=== PATIENT | female | born 1940 ===

== ENCOUNTER 2016-12-31 13:20 | Observation (INO) | payer MEDICARE, MEDICAID ==
[2016-12-31] MEDS ORDERED: Sodium Chloride 0.9% 1,000 ML IV STA (14:05)
[2016-12-31] MEDS ORDERED: Albuterol-Ipratrop 3 mg / 0.5 (3 ml) UD INH STA (14:05)
[2016-12-31] MEDS ORDERED: Albuterol-Ipratrop 3 mg / 0.5 (3 ml) UD ONE (14:11)
--- NOTE | 2016-12-31 14:15 | ED PDOC ---
HPI: SOB/CHF/COPD Time Seen by Provider: 12/31/16 13:57 Chief Complaint (Nursing): Shortness Of Breath Chief Complaint (Provider): Shortness of Breath History Per: Patient, Family History/Exam Limitations: no limitations Onset/Duration Of Symptoms: Days (2x weeks) Current Symptoms Are (Timing): Still Present Severity: Moderate Additional Complaint(s): 76 year old female with a pertinent medical history of PE (diagnosed 1x month ago at [facility], currently taking Xarelto), HTN, and hypercholesterolemia presents to the ED with complaints of difficulty breathing accompanied by a mild headache (not the worst of her life), congestion, cough ( no phlegm), rhinorrhea, chest pain, back pain, body aches, and joint pain. She reports taking Tylenol with no relief and denies having numbness, tingling, weakness, fevers, nausea, and vomiting. MD: Adithya Haile Jr., MD - Risk Factors PE Risk Factors: Pos: Previous PE Past Medical History Reviewed: Historical Data, Nursing Documentation, Vital Signs Vital Signs: Last Vital Signs Temp 97.1 F L 12/31/16 13:28 Pulse 66 12/31/16 13:28 Resp 18 12/31/16 13:28 BP 117/71 12/31/16 13:28 Pulse Ox 99 12/31/16 16:58 - Medical History PMH: HTN, Hypercholesterolemia, Pulmonary Embolism Denies: Asthma - Family History Family History: States: Unknown Family Hx - Social History Alcohol: None Drugs: Denies - Home Medications Home Medications: Ambulatory Orders Medication Instructions Recorded Acetaminophen [Tylenol 325mg tab] 650 mg PO Q6H PRN 01/19/15 Acetaminophen [Tylenol] 650 mg PO Q4H PRN 01/19/15 Atorvastatin Calcium [Lipitor] 20 mg PO HS 01/19/15 Bisacodyl [Ducolax] 10 mg DE DAILY PRN 01/19/15 Celecoxib [celeBREX] 200 mg PO DAILY 01/19/15 Enoxaparin [Lovenox] 40 mg SC DAILY 01/19/15 Famotidine 20 mg PO Q12H 01/19/15 Ferrous Sulfate 324 mg PO TID 01/19/15 Folic Acid 1 mg PO DAILY 01/19/15 Mag Hydrox/Aluminum Hyd/Simeth 30 ml PO Q4H PRN 01/19/15 [Mag-Al Plus Xs 30 ml] Magnesium Hydroxide [Milk Of 30 ml PO HS PRN 01/19/15 Magnesia] Metoclopramide Hydrochloride 2 ml IV Q6H PRN 01/19/15 [Reglan] Metoprolol Succinate [Toprol XL] 25 mg PO DAILY 01/19/15 Multivitamin [Daily Vitamin] 1 tab PO DAILY 01/19/15 Ondansetron HCl [Zofran] 4 mg IVP Q6H PRN 01/19/15 Sennosides/Docusate Sodium 2 tab PO Q12H 01/19/15 [Senna-Plus 50 mg-8.6 mg] Zolpidem Tartrate [Zolpidem] 5 mg PO HS PRN 01/19/15 oxyCODONE/Acetaminophen [Percocet 1 tab PO Q4H PRN 01/19/15 5/325 mg Tab] oxyCODONE/Acetaminophen [Percocet 2 tab PO Q4H PRN 01/19/15 5/325 mg Tab] - Allergies Allergies/Adverse Reactions: Allergies Allergy/AdvReac Type Severity Reaction Status Date / Time No Known Allergies Allergy Verified 12/31/16 13:27 Review of Systems ROS Statement: Except As Marked, All Systems Reviewed And Found Negative Constitutional: Positive for: Other (bodyaches). Negative for: Fever Cardiovascular: Positive for: Chest Pain Respiratory: Positive for: Cough, Shortness of Breath. Negative for: Sputum Gastrointestinal: Negative for: Nausea, Vomiting Musculoskeletal: Positive for: Back Pain, Other (joint pain) Neurological: Positive for: Headache (mild, not worst of life). Negative for: Weakness, Numbness (no tingling) Physical Exam - Reviewed Nursing Documentation Reviewed: Yes Vital Signs Reviewed: Yes - Physical Exam Appears: Positive for: Non-toxic, No Acute Distress Head Exam: Positive for: ATRAUMATIC, NORMOCEPHALIC Skin: Positive for: Normal Color, Warm, Dry Eye Exam: Positive for: Normal appearance ENT: Positive for: Normal ENT Inspection, Nasal Congestion Neck: Positive for: Normal, Painless ROM, Supple Cardiovascular/Chest: Positive for: Regular Rate, Rhythm. Negative for: Chest Non Tender, Edema Respiratory: Positive for: Decreased Breath Sounds (mild decreased breath sounds ) Gastrointestinal/Abdominal: Positive for: Normal Exam, Soft. Negative for: Tenderness Back: Positive for: Normal Inspection. Negative for: L CVA Tenderness, R CVA Tenderness, Vertebral Tenderness Extremity: Positive for: Normal ROM. Negative for: Tenderness, Pedal Edema, Calf Tenderness, Swelling Neurologic/Psych: Positive for: Alert, personnel representative II-XII, Oriented (3x). Negative for : Motor/Sensory Deficits, Facial Droop - Laboratory Results Result Diagrams: 12/31/16 14:46 12/31/16 14:46 Interpretation Of Abn Labs: 1.4 inr - ECG ECG: Positive for: Interpreted By Me, Viewed By Me ECG Rhythm: Positive for: Nonspecific Changes O2 Sat by Pulse Oximetry: 99 (RA) Pulse Ox Interpretation: Normal - Progress ED Course And Treament: 1653: Stable. AAOx3. Pain free currently. Will hold ASA as pt. on xarelto. Spoke with Dr. Ferrer. Will admit tele obs and give further orders when pt. reaches floor. Nebulizer Treatments/Peak Flow - Duonebs Number of Bronchodilator Doses given?: 1 - Pre/Post Peak Flow Pre Treatment Peak Flow: 1 Post treatment Peak Flow: 1 Medical Decision Making Medical Decision Makin:57 Initial impression: 76 year old female with difficulty breathing. Initial plan: * CT angio chest PE protocol * EKG * b-type natriuretic peptide * CMP * troponin I * CBC * PT/PTT * duoneb 3ml INH * morphine 2mg IV * IV NS 1,000ml IV 1,000mls/hr * peak flow pre post treatment * reevaluation Scribe Attestation: Documented by Nayla Bundy, acting as a scribe for Hayden Foster MD. Provider Scribe Attestation: All medical record entries made by the Scribe were at my direction and personally dictated by me. I have reviewed the chart and agree that the record accurately reflects my personal performance of the history, physical exam, medical decision making, and the department course for this patient. I have also personally directed, reviewed, and agree with the discharge instructions and disposition. Disposition - Clinical Impression Clinical Impression: Chest pain - Patient ED Disposition Is Patient to be Admitted: Yes Counseled Patient/Family Regarding: Studies Performed, Diagnosis - Disposition Disposition Time: 16:01 Condition: FAIR - Pt Status Changed To: Hospital Disposition Of: Observation - POA Present On Arrival: None Core Measure Indicators: Chest Pain
[2016-12-31 14:52] LABS: BASO # 0.1 K/uL (0.0-0.2); BASO % 0.9 % (0.0-2.0); EOS # 0.1 K/uL (0.0-0.7); EOS % 1.4 % (0.0-4.0); LYMPH # 3.1 K/uL (1.0-4.3); LYMPH % 38.3 % (20.0-40.0); MEAN CELL VOLUME 88.1 fl (81.0-99.0); MEAN CORPUSCULAR HEMOGLOBIN 29.6 pg (27.0-31.0); MEAN CORPUSCULAR HGB CONC 33.6 g/dL (33.0-37.0); MONO # 0.5 K/uL (0.0-0.8); MONO % 6.8 % (0.0-10.0); NEUT # 4.2 K/uL (1.8-7.0); NEUT % 52.6 % (50.0-75.0); NRBC % 0.2 % (0.0-0.0); RED CELL DISTRIBUTION WIDTH 13.1 % (11.5-14.5)
[2016-12-31 15:09] LABS: ALB/GLOB RATIO 1.2 (1.0-2.1); ALKALINE PHOSPHATASE 75 U/L (38-126); ALT/SGPT 29 U/L (9-52); AST/SGOT 23 U/L (14-36); BILIRUBIN,TOTAL 0.4 mg/dl (0.2-1.3); BLOOD UREA NITROGEN 19 mg/dl (7-17); CALCIUM 9.8 mg/dL (8.4-10.2); CARBON DIOXIDE 27 mmol/L (22-30); CHLORIDE 102 mmol/L (98-107); GFR AFRICAN-AMERICAN > 60; GLUCOSE,RANDOM 89 mg/dL (65-105); POTASSIUM 4.8 MMOL/L (3.6-5.0); SODIUM 141 mmol/l (132-148); TOTAL PROTEIN 8.1 G/DL (6.3-8.2)
[2016-12-31] MEDS ORDERED: Sodium Chloride 0.9% 50 ML IV ONE (15:17)
[2016-12-31] MEDS ORDERED: Iodixanol 320 MG/ML 100 ML BOTTLE IV ONE (15:17)
[2016-12-31 15:30] LABS: PARTIAL THROMBOPLASTIN TIME 37.5 Seconds (25.6-37.1)
--- NOTE | 2016-12-31 16:54 | CT ---
PROCEDURE: CT Chest with contrast (Pulmonary Angiogram) HISTORY: chest pain COMPARISON: None available. TECHNIQUE: Axial computed tomography images were obtained of the chest in the pulmonary arterial phase of enhancement. Coronal and sagittal reformatted images were created and reviewed. Intravenous contrast dose: 90 mL Visipaque 320 Radiation dose: Total exam DLP = mGy-cm. This CT exam was performed using one or more of the following dose reduction techniques: Automated exposure control, adjustment of the mA and/or kV according to patient size, and/or use of iterative reconstruction technique. FINDINGS: PULMONARY ARTERIES: Unremarkable. No pulmonary embolism. AORTA: No acute findings. No thoracic aortic aneurysm. LUNGS: No infiltrate. Mild nonspecific mosaic attenuation in both upper lobes. Linear scar/atelectasis in both lower lobes. No pulmonary mass. PLEURAL SPACES: Unremarkable. No effusion or pneuomothorax. HEART: Status post CABG. Mild cardiomegaly. LYMPH NODES: No lymphadenopathy. BONES, CHEST WALL: Unremarkable. No fracture or destructive lesion OTHER FINDINGS: Unremarkable. IMPRESSION: No evidence of pulmonary embolism. No acute infiltrate. Mild nonspecific mosaic attenuation in both upper lobes. Status post CABG.
--- NOTE | 2016-12-31 17:02 | CARD ---
APPROVED REPORT EKG Measurement Heart [id number] <Conclusion> Normal sinus rhythm Minimal voltage criteria for LVH, may be normal variant Inferior infarct, age undetermined Anterior infarct, age undetermined Abnormal ECG
[2016-12-31] MEDS ORDERED: DIPHENHYDRAMINE PO PRN (22:04)
[2016-12-31] MEDS ORDERED: ACETAMINOPHEN PO PRN (22:04)
[2017-01-01] MEDS ORDERED: Pneumococcal 23-Valent Vaccine IM ONE (06:45)
[2017-01-01 08:14] VITALS: RESP 18
--- NOTE | 2017-01-01 09:41 | CP.PCM.CON ---
History of Present Illness - History of Present Illness History of Present Illness: Full Note Dictated Stable CAD (Old Infarcts) H/O PE (On Xarelto) HTN Denies any chest pain Denies any dyspnoea Stable from cardiac point of view. Past Patient History - Past Social History Smoking Status: Never Smoked - CARDIAC Hx Cardiac Disorders: Yes Hx Hypercholesterolemia: Yes Hx Hypertension: Yes - PULMONARY Hx Respiratory Disorders: Yes Hx Pulmonary Embolism: Yes - NEUROLOGICAL Hx Neurological Disorder: No - HEENT Hx HEENT Problems: No - RENAL Hx Chronic Kidney Disease: No - ENDOCRINE/METABOLIC Hx Endocrine Disorders: No - HEMATOLOGICAL/ONCOLOGICAL Hx Blood Disorders: Yes Hx AIDS: No Hx Human Immunodeficiency Virus (HIV): No - INTEGUMENTARY Hx Dermatological Problems: No - MUSCULOSKELETAL/RHEUMATOLOGICAL Hx Musculoskeletal Disorders: No Hx Falls: Yes (2 years ago) - GASTROINTESTINAL Hx Gastrointestinal Disorders: No - GENITOURINARY/GYNECOLOGICAL Hx Genitourinary Disorders: No - PSYCHIATRIC Hx Psychophysiologic Disorder: No Hx Substance Use: No - SURGICAL HISTORY Hx Section: Yes (x2) Hx Hysterectomy: Yes Hx Open Heart Surgery: Yes - ANESTHESIA Hx Anesthesia: Yes Hx Anesthesia Reactions: No Hx Malignant Hyperthermia: No Has any member of the family had a problem w/ anesthesia?: No Meds Allergies/Adverse Reactions: Allergies Allergy/AdvReac Type Severity Reaction Status Date / Time No Known Allergies Allergy Verified 12/31/16 13:27 - Medications Medications: Current Medications Atorvastatin Calcium (Lipitor) 80 mg PO DAILY [facility] Last Admin: 01/01/17 08:10 Dose: 80 mg Home Med (Acetaminophen/Diphenhydramine [Tylenol Pm Ex-Strength Caplet]) 2 tab PO HS PRN PRN Reason: Insomnia Metoprolol Tartrate (Lopressor) 25 mg PO BID [facility] Last Admin: 01/01/17 08:12 Dose: 25 mg Rivaroxaban (Xarelto) 20 mg PO DAILY [facility] PRN Reason: Protocol Last Admin: 01/01/17 08:10 Dose: 20 mg Trazodone HCl (Desyrel) 50 mg PO HS [facility] Last Admin: 12/31/16 23:03 Dose: 50 mg Results - Vital Signs Recent Vital Signs: Last Vital Signs Temp 97.8 F 01/01/17 08:00 Pulse 62 01/01/17 08:12 Resp 18 01/01/17 08:00 BP 107/66 01/01/17 08:12 Pulse Ox 95 01/01/17 08:00 - Labs Result Diagrams: 12/31/16 14:46 12/31/16 14:46 Labs: Laboratory Results - last 24 hr 12/31/16 01/01/17 22:30 06:41 Troponin I < 0.0120 < 0.0120
--- NOTE | 2017-01-01 10:07 | CON ---
DATE: 01/01/2017 The patient is hospitalized under Dr. Ferrer's care in room 410, bed 2. HISTORY OF PRESENT ILLNESS: This 76-year-old female came to the Emergency Room complaining of cough and congestion and also some shortness of breath. She denies any chest pain. Admits to the fact zoie t she has had prior myocardial infarctions. She is a hypertensive who denies any history of diabetes . Rarely experiences any pedal edema and was recently started on anticoagulation because of pulmonar y embolism. She has never been a smoker and is able to walk 3-4 blocks without getting out of breath . PHYSICAL EXAMINATION: GENERAL: Shows an elderly lady who is lying in bed, quite alert, awake, coherent. VITAL SIGNS: Afebrile, in no respiratory distress, breathing at 16-18 breaths per minute, can carry on a conversation. Her heart rate was 74 beats per minute, regular, and her blood pressure was 140/8 0 mmHg. On room air, the oxygen saturation was 97%. NECK: Her jugular venous pressure was not elevated. EXTREMITIES: There was no edema of lower extremities. The pedal pulses were well felt. There were no carotid bruits. Extremities are warm, nailbeds are pink. There was no central or peripheral cyan osis. There was no clubbing. HEART: [place] was in the 5th space. The first and second heart sounds were normal. There was no murm ur, no gallop. LUNGS: No rales. ABDOMEN: Soft. Liver and spleen were not palpable. LABORATORY DATA: Electrocardiogram showed sinus rhythm with evidence of an old inferior wall myocard ial infarction and evidence of an old anterior wall myocardial infarction. CT angiogram of the chest did not reveal any evidence of pulmonary emboli. Three sets of troponins were negative for any evid ence of myocyte injury. Her hemoglobin and hematocrit were 14.5 g and 43.0% respectively. Her WBC c ount and platelet counts were within normal limits. Her BUN and creatinine were 19 and 0.7 mg%. Her electrolytes were normal. 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 Harris Ross MD cc: 23 TT: 01/01/2017 10:06:58 Confirmation # [id number] Dictation # [id number] rn
[2017-01-01 12:40] VITALS: BP 128/72; PULSE 58; TEMP 98.5; O2SAT 98
--- NOTE | 2017-01-01 13:30 | CP.PCM.HP ---
History of Present Illness - History of Present Illness History of Present Illness: 76 year old female with PMHx of PE (diagnosed 1x month ago at [facility] , currently taking Xarelto), HTN, and hypercholesterolemia presented to ED with difficulty breathing associated with myalgias/arthralgias and chest pain x 1wk . No fever, chills, recent travel, sick contacts. Patient denies palpitations, changes in bowel/urinary habits. CTA negative for PE. Patient was admitted for chest pain observation on telemetry unit. Patient was seen and evaluated with attending. Improved symptoms this AM. No cp/sob. Present on Admission - Present on Admission Any Indicators Present on Admission: Yes History of DVT/PE: Yes Review of Systems - Review of Systems All systems: reviewed and no additional remarkable complaints except (mentioned in HPI) Past Patient History - Past Social History Smoking Status: Never Smoked - CARDIAC Hx Cardiac Disorders: Yes Hx Hypercholesterolemia: Yes Hx Hypertension: Yes - PULMONARY Hx Respiratory Disorders: Yes Hx Pulmonary Embolism: Yes - NEUROLOGICAL Hx Neurological Disorder: No - HEENT Hx HEENT Problems: No - RENAL Hx Chronic Kidney Disease: No - ENDOCRINE/METABOLIC Hx Endocrine Disorders: No - HEMATOLOGICAL/ONCOLOGICAL Hx Blood Disorders: Yes Hx AIDS: No Hx Human Immunodeficiency Virus (HIV): No - INTEGUMENTARY Hx Dermatological Problems: No - MUSCULOSKELETAL/RHEUMATOLOGICAL Hx Musculoskeletal Disorders: No Hx Falls: Yes (2 years ago) - GASTROINTESTINAL Hx Gastrointestinal Disorders: No - GENITOURINARY/GYNECOLOGICAL Hx Genitourinary Disorders: No - PSYCHIATRIC Hx Psychophysiologic Disorder: No Hx Substance Use: No - SURGICAL HISTORY Hx Section: Yes (x2) Hx Hysterectomy: Yes Hx Open Heart Surgery: Yes - ANESTHESIA Hx Anesthesia: Yes Hx Anesthesia Reactions: No Hx Malignant Hyperthermia: No Has any member of the family had a problem w/ anesthesia?: No Meds Allergies/Adverse Reactions: Allergies Allergy/AdvReac Type Severity Reaction Status Date / Time No Known Allergies Allergy Verified 12/31/16 13:27 Physical Exam - Constitutional Appears: Well, Non-toxic, No Acute Distress - Head Exam Head Exam: ATRAUMATIC, NORMAL INSPECTION, NORMOCEPHALIC - Eye Exam Eye Exam: Normal appearance - Neck Exam Neck exam: Positive for: Normal Inspection - Respiratory Exam Respiratory Exam: Clear to Auscultation Bilateral, NORMAL BREATHING PATTERN. absent: Decreased Breath Sounds - Cardiovascular Exam Cardiovascular Exam: REGULAR RHYTHM, RRR, +S1, +S2 - GI/Abdominal Exam GI & Abdominal Exam: Normal Bowel Sounds, Soft. absent: Tenderness - Extremities Exam Extremities exam: Positive for: normal inspection - Back Exam Back exam: NORMAL INSPECTION - Neurological Exam Neurological exam: Alert, Oriented x3 - Psychiatric Exam Psychiatric exam: Normal Affect, Normal Mood - Skin Skin Exam: Dry, Intact, Normal Color, Warm Results - Vital Signs Recent Vital Signs: Last Vital Signs Temp 98.5 F 01/01/17 12:00 Pulse 58 L 01/01/17 12:00 Resp 18 01/01/17 12:00 BP 128/72 01/01/17 12:00 Pulse Ox 98 01/01/17 12:00 - Labs Result Diagrams: 12/31/16 14:46 12/31/16 14:46 Labs: Laboratory Results - last 24 hr 12/31/16 01/01/17 22:30 06:41 Troponin I < 0.0120 < 0.0120 Assessment & Plan (1) Chest pain Assessment and Plan: History of recent PE on xarelto CTA negative. Labs reviewed, wnl. Chest pain yesterday has resolved. Cardiology consulted, appreciate recommendations Troponin x 3 negative EKG wnl Vitals stable, afebrile no acute events overnight, no abnormalities in telemetry readings Status: Acute
== END 2017-01-01 16:00 | disposition home or self-care (01) ==
LOC: H.ER 13:20 → H.ERHOLD 17:01 → H.TEL 19:06
PROVIDERS: ADMIT Internal Medicine; ATTEND Internal Medicine
DX: R07.89 Other chest pain (principal); E78.00 Pure hypercholesterolemia, unspecified; I10 Essential (primary) hypertension; I25.10 Atherosclerotic heart disease of native coronary artery without angina pectoris; I25.2 Old myocardial infarction; Z86.711 Personal history of pulmonary embolism; Z79.01 Long term (current) use of anticoagulants; Z23 Encounter for immunization
CPT/HCPCS: 36415; 71275; 80053; 83880; 84484; 85025; 85610; 85730; 90732; 93005; 96360; 99285; G0009; G0378; J2270; J7040; Q9967